=== PATIENT | female | born 1995 | race Caucasian/White ===

== ENCOUNTER 2017-04-21 15:32 | Inpatient (IN) ==
--- OUTSIDE RECORDS SUMMARY | 2017-04-21 16:05 | External Medical Summary | Continuity of Care Document ---
:1995 Author Organization [email or web address] Address [address] [place], [place] [id number] Phone Care Team Providers Name Role Phone Chelsie Lima MD Unavailable Unavailable Allergies, Adverse Reactions, Alerts Substance Reaction Severity Status No Known Drug Allergies Unknown Active Medications Medication Instructions Dosage Effective Dates Status Comments (start - stop) cephalexin 500 mg take 1 capsule by ORAL 500 MG - Active capsule route 3 times every day for 5 days ibuprofen 800 mg take 1 tablet by oral 800 MG - Active tablet route 3 times every day with food Problems Condition Effective Dates (start - stop) Clinical Status Encntr for f/u exam aft trtmt for cond - oth than malig neoplm Pelvic and perineal pain Generalized abdominal pain Pelvic and perineal pain Pelvic and perineal pain Obsessive Compulsive Disorder Active Complex Ovarian Cyst Active Procedures Procedure Date Office/outpatient visit,est, mod Results Test Name Date and Time Measure Units Reference Range Abnormal Flag Comments Unknown Advance Directives Directive Yes / No Effective Date File Name Unknown Encounters Encounter Practice Location Reason(s) Diagnoses Date Provider Care Team Description For Visit Members Office/outpat [facility] pelvic pain Pelvic and Jenna Referring ient In Women (chief perineal 1-201 Felicitas. Provider: visit,est, Health PA, complaint) painGeneralized 7 700 Chelsie mod [address], abdominal pain [place], [id number], , [facility] [address], tel: Natali Beltran, [address] [place], [address]. [id number] tel: , [place]. [id number] tel: [phone] [facility] Encntr for f/u Mar-1 Jenna Referring In Womens exam aft trtmt 0-201 Felicitas. Provider: Shalonda SANTIAGO, for cond oth 6 700 Chelsie [address], [place], [place], neoplm Center [id number], , [facility] [address], tel: Natali Beltran, [address] [place], [address]. [id number] tel: , [place]. [id number] tel: [phone] [facility] Pelvic and Feb-2 Jenna In Womens perineal pain 6-201 Felicitas. Shalonda SANTIAGO, [address], [place], [place], [place] [phone], , [facility] [address], tel: Devin [address] [place], [id number] , [place]. tel: [phone] [facility] Pel[facility] and Feb-2 Jenna Referring In Womens perineal pain 5-201 Felicitas. Provider: Shalonda SANTIAGO, 6 700 Chelsie [address], [place], [place], [address] [id number], , [facility] [address], Dr, tel: Natali Beltran, [id number] [place] [address], [address]. [id number] tel: , [place]. [id number] tel: [phone] Family History Family Member Diagnosis Age At Onset Unknown Immunizations Vaccine Date Status Comments Unknown Payers Payer name Insurance type Covered democrat ID Authorization(s) [facility] [id number] [facility] [id number] Social History Type Description Quantity Date Captured Alcohol Use Details No Caffeine Use Details Unknown Tobacco Use Status Never smoked tobacco Smoking Status Never smoker Non-Smoking Tobacco Use : No Details Available : No Details Available Details Vital Signs Date / Height Weight BMI Pulse Blood Temperature Respiratory Body Head BMI Time: Rate Pressure Rate Surface Circumference percentile Area 206.40 105 130/93 97.30 -2017 lbs /min mm[Hg] 2:52 PM Chief Complaint And Reason For Visit Most recent encounter only, dated '04/21/2017 14:40'. pelvic pain (chief complaint). Description: The pain started suddenly 1 days ago. Severity level ismoderate-severe. It occurs continuously. Region of the pain is diffuse, left lower quadrant, left upper quadrant, periumbilical, right lowe The pain does not radiate. The patient describes her painas aching, and sharp. The problem is with no change. Symptoms are worsened by position changes.. She is also experiencing abdominal distention. She denies constipation, diarrhea, dysmenorrhea, dysuria and vaginal discharge. LMP this week. Started Keflex 2 days ago for skin infection. Reason For Referral Reason For Referral Unknown Plan Of Care Date Type Action Status Unknown. Date Type Problem Goal Intervention Status Start Date Unknown. History Of Present Illness Encounter Date Complaint History Of Present Illness pelvic pain The pain started suddenly 1 days ago. Severity level is moderate-severe. It occurs continuously. Region of the pain is diffuse, left lower quadrant, left upper quadrant, periumbilical, right lowe The pain does not radiate. The patient describes her pain as aching, and sharp. The problem is with no change. Symptoms are worsened by position changes.. She is also experiencing abdominal distention. She denies constipation, diarrhea, dysmenorrhea, dysuria and vaginal discharge. LMP this week. Started Keflex 2 days ago for skin infection. Functional Status Encounter Date Functional Assessment Cognitive Assessment Unknown Medications Administered Medication Instructions Dosage Effective Dates (start - stop) Status Comments Drug Treatment Unknown Instructions Date Instruction Additional Information Unknown
--- OUTSIDE RECORDS SUMMARY | 2017-04-21 16:05 | External Medical Summary | Continuity of Care Document ---
:1995 Author Organization [facility] Allergies Active Description Code Type Severity Reaction Onset Reported/ Identified Relationship Clinical to Patient Status Yes No Known 12978 3 N/A N/A Drug 0 Allergies Medications Problems Date Dx Coded Attending Type Code Diagnosis Diagnosed By 07/20/2015 Felicitas West W N83.29 Other ovarian cysts 07/20/2015 Felicitas West L W R10.2 Pelvic and perineal pain 07/21/2015 Felicitas West W N83.29 Other ovarian cysts 07/21/2015 Felicitas West L W R10.2 Pelvic and perineal pain 07/24/2015 HONG VASQUEZ Ot N83.29 D 07/24/2015 HONG VASQUEZ Ot R10.2 D 08/05/2015 TRAE LEE Ot N39.0 TIRE FINISHER 11/11/[address] [facility] URINARY TRA[facility] TIRE FINISHER INFECTION, SITE NOT SPECIF Procedures Code Description Performed By Performed On 07/17/2015 [id number] Laprscpy w/fulgur-excis,lesions Results Encounters ACCT No. Visit Discharge Status Pt. Type Provider Facility Loc./Unit Complaint Date/Time [id number] 07/14/2015 07/14/2015 [facility] Outpatient ANDREY Mata RAD [id number] 10:06:00 23:59:59 Tawana SANTIAGO [id number] 06/01/2015 06/01/2015 [facility] Outpatient Natali LEE [facility] [id number] 18:48:00 23:59:59 [facility] TIRE FINISHER [id number] 07/30/2015 07/30/2015 [facility] Outpatient [facility], 11:15:00 23:59:59 Felicitas L [id number] 07/24/2015 07/24/2015 [facility] Outpatient [facility], 09:41:00 23:59:59 Felicitas L [id number] 07/23/2015 07/23/2015 [facility] Outpatient [facility], 15:03:00 23:59:59 Felicitas L [id number] 07/20/2015 07/20/2015 [facility] Jenna, 10:34:00 23:59:59 Felicitas L [id number] 07/17/2015 07/17/2015 [facility] Out[facility] Jenna, 20:51:00 23:59:59 Felicitas L [id number] 07/16/2015 07/16/2015 [facility] Outpatient Jenna, 09:45:00 23:59:59 Felicitas L [id number] 04/21/2017 Document 14:40:00 Registratio n [id number] 04/20/2017 [facility] Outpatient [facility], 16:03:00 Felicitas L
[2017-04-21 16:21] VITALS: BMI 35.3
[2017-04-21] MEDS ORDERED: MORPHINE SULFATE 2mg INJECTION IVP PRN (16:25)
[2017-04-21] MEDS ORDERED: ONDANSETRON 4 MG/2 ML INJECTION IVP PRN (16:26)
[2017-04-21] MEDS: LR 1,000 ML IV SCH (16:47)
[2017-04-21] MEDS ORDERED: IOHEXOL 300mg/ml 100ml INJECTION ONE (17:00)
[2017-04-21] MEDS ORDERED: NS 100 ML ONE (17:00)
[2017-04-21] MEDS ORDERED: SALINE FLUSH 10ml SYRINGE ONE (17:00)
[2017-04-21] MEDS ORDERED: NS 1,000 ML IV SCH (18:30)
--- NOTE | 2017-04-21 18:32 | CT Scan Report ---
Indication: ABDOMINAL PAIN PROCEDURE: CT abdomen pelvis w con: Encounter: Initial Comparison: None Technique: Axial CT images were performed through the abdomen and pelvis after the administration of intravenous contrast. Coronal and sagittal two-dimensional reformats. Automated Exposure Control and Iterative Reconstruction dose reducing techniques were utilized. Contrast: Omnipaque 300 100 mL Findings: The lung bases are clear. The liver is normal. The gallbladder, spleen, pancreas and adrenal glands are within normal limits. The kidneys are normal. No abdominal or pelvic lymphadenopathy. The bladder is grossly normal. There is free fluid and inflammation surrounding the uterus, ovaries and adnexa. There is a multiloculated cystic structure in the right adnexa measuring 5 cm in diameter on axial image #69. There is also a cystic lesion in the left adnexa on image #70 measuring 4.5 cm in diameter. These regions appear to be associated with the ovaries based on the courses of the ovarian veins. Minimal normal ovarian tissue seen. There is a small amount of fluid in the endometrial canal. There is a layer of fluid interposed between the uterus and the bladder, best seen on the sagittal plane images. This pocket of fluid measures 5.1 x 2 x 7.2 cm in size but does not show significant rim enhancement.. There is no evidence of a bowel obstruction. A normal caliber appendix is identified on axial images 59 through 63. There is trace fluid and stranding nearby, but I believe this is tracking from the process centered in the pelvis and is not primarily related to the appendix. Bone windows show no acute findings. There is some inflammation seen in the distal ileal mesentery. Impression: 1. Inflammation and fluid within the pelvis with large cystic lesions associated with each ovary. The appearance is most consistent with a tubo-ovarian abscess. 2. Inflammation in the terminal ileal mesentery. This is more likely to be related to the presumed pelvic inflammatory process rather than a terminal ileitis or inflammatory bowel disease such as Crohn's. The preliminary report suggests tethering of the terminal ileum which cannot be excluded but there is no evidence of a small bowel obstruction. There is a preliminary report by [facility]. The preliminary report does not mention a tubo-ovarian abscess as a possibility for the findings. .
[2017-04-21] MEDS: IBUPROFEN 800 MG TABLET PO PRN (20:42)
[2017-04-22] MEDS: LR 1,000 ML IV SCH ×3 (01:00→12:03)
--- NOTE | 2017-04-22 10:10 | OB/GYN Progress Note ---
WEB ADMINISTRATOR Progress Note - Subjective Today's Date: 04/22/17 Doing well, Minimal complaints. Denies N/V, F/C. Pain well controlled required one dose of morphine yesterday and has used Motrin Since. Tolerated clear deit. - Objective Vital signs: Temperature 99.1 F 04/22/17 08:36 Pulse Rate 86 04/22/17 08:36 Respiratory Rate 14 04/22/17 08:36 Blood Pressure 119/71 04/22/17 08:36 Pulse Oximetry 96 04/22/17 08:36 General: alert and oriented Cardiovascular: regular rate,rhythm Respiratory: non-labored Abdomen: soft, non-distended, no rebound, no guarding Extremities: non-tender Laboratory Result: 04/22/17 04:26 04/21/17 16:44 - Assessment and Plan (1) TOA (tubo-ovarian abscess) Assessment and Plan: TOA per Amended CT report- Meets criteria for ABX management - Cefoxitin/ Doxy IV x 48-72 then PO , Monitor condition closely for suspected rupture may need to go to OR - DC morphine, Start PO Percocet and Motrin for pain. Normal diet for now. - Pelvic Sono vs CT Monday to monitor response - Case discussed with Radiologist Abscess not drainable with IR - GC/CH from urine today -Repeat CBC in am -Pt reports HX of blood in stool on several occasions in last 2 years would recommend GI eval after resolution of acute episode. -Initial CT report did not mention TOA, Amended report did. Report not called to attending physician, Delay in treatment. Discussed with pt and Family. Discussed with boardinghouse keeper. Event variance report to be filled out.
[2017-04-22] MEDS ORDERED: Oxycodone/Acetaminophen 5/325 1 TAB PO PRN (10:11)
[2017-04-22] MEDS: CEFOXITIN 2 GM in NS 100 ML IV SCH ×3 (10:24→22:33)
[2017-04-22] MEDS: IBUPROFEN 800 MG TABLET PO PRN (10:30)
--- NOTE | 2017-04-22 13:23 | Consultation ---
DATE OF CONSULTATION 04/22/2017 HPI This patient is 21 years old. This patient did undergo diagnostic laparoscopy with bilateral ovarian cystotomies on 07/17/[address] Felicitas West at [facility]. The patient was known before this operation to have bilateral complex ovarian cysts and pelvic pain. The patient was found at the time of operation to have bilateral endometriomas. At the time of this operation, the patient was found have grossly enlarged bilateral ovaries adherent to the posterior cul-de-sac and also adherent to the rectosigmoid colon. The right fallopian tube was also adherent to the midline and wrapped around the right ovary. The patient did undergo dissection of adhesions at the time of this operation. The patient did have quite a bit of chocolate fluid drained from the largest ovarian cyst at this operation which was on the left side. The patient then had two other cysts at the right ovary which were drained in the same fashion. The patient also had a little bit of hematochezia at some time around this same operation in 2015. The hematochezia was not evaluated at that time. The patient states that she has had no further abdominal or pelvic pain at all from the time of the operation in June 2015 up until two days ago. She has also not had any further hematochezia from June 2015 up until the last few days. The patient states that she has had a little bit of hematochezia for the last few days. This has been small amounts of bright red blood which she notices when wiping after a bowel movement. She did have some hard stools at this same time she was having this hematochezia. The patient states she did develop some generalized abdominal pain on 2016. The patient did undergo evaluation by Dr. Felicitas West on 04/21/2017 and was admitted to [facility] by Dr. West on 04/21/2017 for evaluation of the generalized abdominal pain. The patient states that she was having pain at the upper abdomen and lower abdomen on 04/21/2017. She states that this was present at the right side and left side of the abdomen. Dr. Garcia did assume care of the patient when she was admitted to [facility] on 04/21/2017. A CBC was performed on 04/21/2017. Hemoglobin was 11,400 with 74.4% neutrophils and 17.3% lymphocytes. The patient did undergo a CT scan of the abdomen and pelvis at [facility] on the evening of 04/21/2017. This CT scan of the abdomen and pelvis does show inflammation and fluid within the pelvis with large cystic lesions associated with each ovary. The radiologist thought that the appearance was most consistent with tubo-ovarian abscess. The patient also has some inflammation at the terminal ileum mesentery which is thought to be related to the pelvic inflammatory process. The CT scan of the abdomen and pelvis does show a normal- caliber appendix. The patient has been started on intravenous antibiotic treatment with Mefoxin 2 g intravenously every six hours and doxycycline 100 mg intravenously every 12 hours starting on the morning of 04/22/2017. The patient reports that her abdominal pain is better today than it was yesterday. She reports having some bilateral lower abdominal pain. She no longer has any upper abdominal pain. The patient has been tolerating a liquid diet following admission to the hospital and the diet has now been advanced up to a solid diet. PHYSICAL EXAMINATION VITAL SIGNS: Temperature is 99.1 degrees Fahrenheit oral. Pulse is 86. Respiratory rate is 14. Blood pressure is 119/71. Oxygen saturation is 96% percent on room air. ABDOMEN: The abdomen is soft. The patient has some bilateral lower abdominal tenderness. RECTUM: I did perform digital rectal examination today. There is no blood in the rectal vault at this time. I cannot detect any anal fissures at digital rectal examination at this time. There are not any prominent hemorrhoids present. No rectal masses were present. LABORATORY DATA White blood cell count was 11,400 on 04/21/2017. White blood cell count is 8100 with no bands on 04/22/2017. The differential on 04/22/2017 shows 58.1% neutrophils and 33.3% lymphocytes. IMPRESSION 1. Status post diagnostic laparoscopy with bilateral ovarian cystotomies for treatment of bilateral endometriomas on 07/17/2015. 2. Tubo-ovarian abscess with inflammation and fluid within the pelvis with large cystic lesions associated with each ovary demonstrated on 04/21/2017 CT scan of the abdomen and pelvis. 3. Normal appearance of appendix on 04/21/2017 CT scan of the abdomen and pelvis. 4. History of hematochezia. RECOMMENDATIONS 1. I agree with the current antibiotic treatment for what appears on the CT scan of the abdomen and pelvis to be a tubo-ovarian abscess. 2. No indication for laparoscopic appendectomy at this time with normal appearance of the appendix on CT scan of the abdomen and pelvis. 3. At some point after this acute pelvic inflammatory process has resolved, the patient may need evaluation of her hematochezia with colonoscopy. This would particularly be true if she continues to experience continued episodes of hematochezia. SUMA
[2017-04-22] MEDS: DOXYCYCLINE 100 MG in NS 250ml 250 ML IV SCH (13:34)
[2017-04-23] MEDS: LR 1,000 ML IV SCH ×4 (01:21→22:44)
[2017-04-23] MEDS: DOXYCYCLINE 100 MG in NS 250ml 250 ML IV SCH ×2 (01:21→13:15)
[2017-04-23 01:31] VITALS: RESP 16
[2017-04-23] MEDS: CEFOXITIN 2 GM in NS 100 ML IV SCH ×4 (04:55→23:33)
--- NOTE | 2017-04-23 07:55 | OB/GYN Progress Note ---
BOLT HEADER Progress Note - Subjective Today's Date: 04/23/17 - Objective Vital signs: Temperature 97.8 F 04/23/17 00:00 Pulse Rate 81 04/23/17 00:00 Respiratory Rate 16 04/23/17 00:00 Blood Pressure 119/69 04/23/17 00:00 Pulse Oximetry 99 04/23/17 00:00 Urine Output: good General: alert and oriented Cardiovascular: regular rate,rhythm Respiratory: non-labored Abdomen: soft, non-distended, no rebound, no guarding Extremities: non-tender Laboratory Result: 04/23/17 07:17 04/21/17 16:44 - Assessment and Plan (1) TOA (tubo-ovarian abscess) Assessment and Plan: TOA- VSS, condition stable. Continues to improve -Continue IV ABX-48-72 hours -Repeat Imaging likely pelvic sono tomorrow -Gen Surg consult appreciate recs, HX of hematochezia -Discussed prior surgery with Cyst c/w with endometriomas, no other evidence of endometriosis, Pathology of cyst was benign cyst wall not endometriomas. Spent significant amount of time with pt discussing differential diagnosis. Possible TOA vs BL endometriomas. Discussed need for continued treatment for TOA. Mother not in room. Will be back later today to discuss with Pt and mother.
[2017-04-23 23:42] VITALS: PULSE 81
[2017-04-24] MEDS: DOXYCYCLINE 100 MG in NS 250ml 250 ML IV SCH ×2 (01:17→13:55)
[2017-04-24] MEDS: CEFOXITIN 2 GM in NS 100 ML IV SCH ×2 (04:45→10:22)
--- NOTE | 2017-04-24 08:43 | Ultrasound Report ---
Indication: pelvic pain PROCEDURE: US pelvic complete: Encounter: Initial Comparison: CT dated 04/21/2017 FINDINGS: The uterus is normal in size and shape measuring 9.3 cm in length x 2.0 cm in AP dimension x 4.1 cm in transverse dimension. The endometrium is homogeneous without focal abnormality, measuring 3.2 mm in thickness. There is a tubular fluid structure in the posterior cul-de-sac which may represent a left or right fallopian tube hydrosalpinx. The left ovary measures 4.3 x 3.1 x 4.0 cm. There is a minimally complex partially cystic lesion in the left ovary that measures 3.1 x 3.9 x 2.7 cm, with a hematocrit, likely representing a hemorrhagic cyst. There is normal vascularity identified within the left ovary with duplex doppler. The right ovary measures 4.0 x 2.9 x 3.9 cm. There is normal vascularity identified within the right ovary with duplex doppler. IMPRESSION: Suspect small bilateral, versus left or right hydrosalpinx with left ovarian hemorrhagic cyst demonstrating hematocrit level, measuring 3.1 x 3.9 x 2.7 cm. A follow-up exam in 4-6 weeks is recommended to ensure resolution. .
--- NOTE | 2017-04-24 09:00 | Progress Note ---
DATE 04/23/2017 HISTORY OF PRESENT ILLNESS The patient continues to receive intravenous Mefoxin and doxycycline. The patient reports that her lower abdominal pain and pelvic pain is much improved compared to yesterday. She still does have some pain at the lower abdomen and pelvis, but it is less than it was yesterday. The patient is feeling better. PHYSICAL EXAMINATION VITAL SIGNS: Temperature is 97.9 degrees Fahrenheit oral. Pulse is 83. Respiratory rate is 16. Blood pressure is 140/87. Oxygen saturation is 97% on room air. ABDOMEN: The patient still has some bilateral lower abdominal tenderness. No upper abdominal tenderness. The abdomen is soft. No abdominal masses. LABORATORY DATA White blood cell count is 6500 with no bands this morning. IMPRESSION 1. Status post diagnostic laparoscopy with bilateral ovarian cystotomies for treatment of bilateral endometriomas on 07/17/2015. 2. Inflammation and fluid within the pelvis with large cystic lesions associated with each ovary with an appearance most consistent with tuboovarian abscess demonstrated on 04/21/2017 CT scan of the abdomen and pelvis. 3. Acute pelvic pain and lower abdominal pain. This could be due a tuboovarian abscess as suggested by the 04/21/2017 CT scan of the abdomen and pelvis or could be due to endometriosis. 4. Normal appearance of appendix on 04/21/2017 CT scan of the abdomen and pelvis. 5. History of hematochezia. PLAN 1. Continue treatment of the pelvic pain and lower abdominal pain by the cordage sales representative. I agree with continuing the antibiotic treatment at this time in case there is a component of pelvic infection contributing to this acute pain process. 3. At some point after this acute pelvic inflammatory process has resolved, the patient may need evaluation of hematochezia with a colonoscopy. I did talk with the patient and her mother about this again this morning. This would particularly be indicated if the patient continues to have further episodes of hematochezia. SUMA
[2017-04-24 09:32] VITALS: BP 120/80; TEMP 98.1; O2SAT 96
[2017-04-24] MEDS: LR 1,000 ML IV SCH (10:22)
[2017-04-24] MEDS ORDERED: IBUPROFEN 200 MG TABLET PO PRN (12:38)
--- NOTE | 2017-04-24 18:40 | Discharge Summary ---
SUMMARY Ms. Condon was admitted with lower abdominal pain. Initial evaluation was somewhat unclear. She had a mildly elevated white count and findings possibly consistent with appendicitis. During the course of this Dr. Dixon was consulted. Her white count resolved to normal levels within a few hours of IV hydration. Other studies including a CT scan and sonogram revealed findings consistent with tubo-ovarian abscess. The patient has responded well to antibiotics. She is going home today on p.o. doxycycline and cephalexin and is scheduled for followup in my office in about six weeks for a repeat sonogram. We have reviewed precautions and instructions. SUMA
== END 2017-04-24 14:25 | disposition home or self-care (01) | DRG 759 ==
LOC: SRG
PROVIDERS: ADMIT Obstetrics & Gynecology; ATTEND Obstetrics & Gynecology